=== PATIENT | male | born 1955 | race Caucasian/White ===

== ENCOUNTER → 2017-05-04 | Outpatient (CLI) | payer BC ==
[~2017-05-04] MED LIST: AMLO2.5T PO; ATOR-22 PO; CITA20TA9 PO; DVN/160 PO; GLIM1TAB2 PO; HYDR12.55 PO; METF1TAB53 PO; [UNRECOGNIZED DRUG - CODE] SC
[2017-05-04 14:37] LABS: BASO % 0.2 %; BASO ABS # 0.01 K/uL (0-0.2); EOS % 2.2 %; HEMATOCRIT 42.3 % (42-52); HEMOGLOBIN 15.1 g/dL (14.0-18.0); IG# 0.01 K/uL (0.00-0.02); LYMPH % 39.1 %; LYMPH ABS # 1.82 K/uL (1.2-3.4); MEAN CELL VOLUME 87.2 fL (80-100); MEAN CORPUSCULAR HEMOGLOBIN 31.1 pg (25-34); MEAN CORPUSCULAR HGB CONC 35.7 g/dl (32-36); MEAN PLATELET VOLUME 9.8 fL (7.4-10.4); MONO % 10.1 %; MONO ABS # 0.47 K/uL (0.11-0.59); NEUT % 48.2 %; NEUT ABS # 2.24 K/uL (1.4-6.5); PLATELET COUNT 220 K/uL (130-400); RED CELL DISTRIBUTION WIDTH CV 13.3 % (11.5-14.5); RED CELL DISTRIBUTION WIDTH SD 42.2 fL (36.4-46.3); WHITE BLOOD COUNT 4.65 K/uL (4.8-10.8)
[2017-05-04 14:40] LABS: HEMOGLOBIN A1C 11.5 % (4.5-5.6)
[2017-05-04 14:57] LABS: ALBUMIN 3.9 gm/dl (3.4-5.0); ALT/SGPT 27 U/L (12-78); BLOOD UREA NITROGEN 15 mg/dl (7-18); CALCIUM 9.8 mg/dl (8.5-10.1); CARBON DIOXIDE 24 mmol/L (21-32); CHOLESTEROL 182 mg/dl (0-200); CREATININE 1.32 mg/dl (0.60-1.40); GLUCOSE 177 mg/dl (70-99); POTASSIUM 4.3 mmol/L (3.5-5.1); SODIUM 134 mmol/L (136-145); URIC ACID 6.5 mg/dl (2.6-7.2)
[2017-05-04 15:05] LABS: ALKALINE PHOSPHATASE 89 U/L (45-117); AST/SGOT 13 U/L (15-37); LDL CHOLESTEROL CALCULATED 96 mg/dl; TOTAL PROTEIN 7.8 gm/dl (6.4-8.2); TRANSFERRIN 278 mg/dl (200-360)
== END | disposition home or self-care (01) ==
LOC: C.LAB1850 12:44
PROVIDERS: ATTEND Family Medicine
DX: E88.81 Metabolic syndrome and other insulin resistance (principal); E55.9 Vitamin D deficiency, unspecified; D51.9 Vitamin B12 deficiency anemia, unspecified; E78.9 Disorder of lipoprotein metabolism, unspecified; R53.83 Other fatigue

== ENCOUNTER 2022-10-20 18:53 | Inpatient (IN) ==
--- NOTE | 2022-10-20 19:02 | ED Triage Note ---
Date of Service October 20, 2022 History of Present Illness This patient was briefly evaluated while in triage. An abbreviated physical exam was performed. This patient is a 67-year-old Male who presents to the ED for evaluation of "aches, pains, lethargic". Blood sugars have been rising. Recently on abx and decongestant from local urgent care. Physical Exam GENERAL: 67 year old male. In no acute distress. SKIN: No lesions or rashes. HEART: Regular rate and rhythm. LUNGS: Clear to auscultation. ABDOMEN: Bowel sounds normoactive. No guarding or rigidity. No tenderness of palpation. NEURO: Alert and oriented. No deficits. MUSCULOSKELETAL: No deformities to inspection of the extremities. PSYCH: Patient is pleasant and answers all questions appropriately. Initial orders for labs and / or imaging were placed and patient was placed in the waiting area until a bed is available. Please see further documentation for the full ED course.
[2022-10-20 20:14] LABS: Basophils # (auto) 0.01 K/uL (0-0.2); Basophils % (auto) 0.2 %; Hematocrit (blood only) 42.5 % (42.0-52.0); Hemoglobin 15.7 g/dl (14.0-18.0); Immature Granulocytes # (auto) 0.01 K/uL (0.01-0.20); Immature Granulocytes % (auto) 0.2 %; Lymphocytes % (auto) 12.9 %; Mean Corpuscular Hemoglobin 30.8 pg (25.0-34.0); Mean Corpuscular Hgb Conc 36.9 g/dL (32.0-36.0); Mean Corpuscular Volume 83.5 fL (80.0-100.0); Mean Platelet Volume 9.8 fL (9.4-12.4); Monocytes # (auto) 0.67 K/uL (0.11-0.59); Monocytes % (auto) 14.4 %; Neutrophils # (auto) 3.35 K/uL (1.40-6.50); Neutrophils % (auto) 72.3 %; Platelet Count 231 K/uL (130-400); RDW Standard Deviation 36.3 fL (36.4-46.3); Red Blood Count 5.09 M/uL (4.70-6.10); White Blood Count 4.64 K/ul (4.8-10.8)
--- NOTE | 2022-10-20 20:22 | Emergency Department Note ---
Impression & Plan Acute hyponatremia, Muscle ache, Generalized weakness, Elevated troponin I level ED Provider Note NAME: LILI YA AGE: 67 SEX: M : 1955 ARRIVES VIA: Walk-In INFORMANT: Patient, ED PROVIDER(S): Dain Villarreal DO CHIEF COMPLAINT: Muscle aches HPI: The patient is a 67-year-old male who presented to the emergency department for an evaluation of muscle aches. The patient states that he feels very rundown. He feels very slow and weak. He also describes feeling lethargic. He states he has no energy. He was treated recently for an upper respiratory infection which did clear up with antibiotics. The patient denies having any nausea or vomiting at this time. He denies having any chest pain. He denies having any fever or lower extremity swelling. The patient was not seen by his family doctor today. ROS: See above HPI for pertinent positives & negatives. A total of 10 systems reviewed and were otherwise negative. PAST MEDICAL HISTORY: See Below PAST SURGICAL HISTORY: See Below FAMILY HISTORY: See Below SOCIAL HISTORY: See Below HOME MEDICATIONS: See Below ALLERGIES: See Below VITALS: See Below PHYSICAL EXAMINATION: GENERAL: Patient is awake alert in no acute distress patient is resting comfortably and showing no signs of anxiety EYES: The conjunctivae are clear. The pupils are round and reactive. EARS, NOSE, MOUTH AND THROAT: The nose is without any evidence of any deformity. Mucous membranes are moist. NECK: The neck is nontender and supple. RESPIRATORY: Normal respiratory effort is noted there is no evidence of wheezing rhonchi or rales CARDIOVASCULAR: Regular rate and rhythm noted there no murmurs rubs or gallops normal S1 normal S2. GASTROINTESTINAL: The abdomen is soft. Abdomen is nontender. MUSCULOSKELETAL/EXTREMITIES: There is no evidence of gross deformity full range of motion is noted in the hips and shoulders. SKIN: There is no obvious evidence of any rash. There are no petechiae, pallor or cyanosis noted. NEUROLOGIC: Patient is awake alert and oriented x3 strength is symmetric patellar reflexes are 2+ bilaterally MEDICAL DECISION MAKING: The patient is a 67-year-old male who presented to the emergency department for an evaluation of multiple complaints. The patient recently got over an upper respiratory tract infection. He states his symptoms were resolved. The patient started noticing other symptoms recently including muscle aches and generalized weakness. He also started noticing he was having trouble concentrating and he described it as lethargy. I discussed the patient's laboratory and radiographic studies with him. He was treated with IV fluids in the emergency department. He was found have a low white blood cell count. It is possible this represents a tickborne illness however nothing was positive at this time. He was also found to have hyponatremia. Given the patient's presentation I do feel could be related to the hyponatremia. Troponin was elevated although the patient denies having any chest pain. EKG showed no change in previous. Given the patient's presentation I discussed this case with the on-call [facility] hospitalist. Triage Nursing notes reviewed. Prior medical records reviewed Vital Signs: reviewed and remarkable for elevated blood pressure. Differential diagnosis: Infection, dehydration, metabolic abnormality, hypo/hyperglycemia, electrolyte disturbance, anemia, hypoxia, cardiac sources, intracerebral event, toxicologic, neurologic, as well as other pathologies. ER treatment provided: See below Diagnostics interpreted by me: ECG: EKG was obtained in the emergency department my interpretation is sinus rhythm at 79 bpm. PACs were noted. LVH was noted by voltage criteria. Nonspecific ST segment abnormalities were noted. This was compared to a tracing from September 23, 2018. No changes were noted Cardiac Monitoring: An order was placed for continuous cardiac monitoring. The monitor shows a rate of 73 bpm with sinus rhythm. Laboratory studies: As stated above and show below. Imaging studies: See below. Radiographic imaging was reviewed by myself Consultation(s): Dr[facility] Callahan [facility] the patient. He will evaluate the patient in the emergency department. Past Med/Surg History Medical History Anxiety Cellulitis and abscess of foot Diabetes type 2, controlled H/O osteomyelitis H/O renal calculi 46 YEARS AGO History of COVID-19 03/22/22, TESTED AT [facility], NOT HOSP; COVID EXPOSURE, MILD SYMPTOMS>RESOLVED, TX W/PAXLOVID Hypertension MSSA (methicillin susceptible Staphylococcus aureus) infection Serous retinal detachment 7 YEARS AGO Stopped smoking with less than 1 pack per day history Surgical History Hx of colonoscopy Hx of detached retina repair RT. 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 Beliefs That Will Affect Care: None marital status: Current Living Situation: Spouse current occupational status: employed current occupation: WORKS A DESK JOB, AT THE [employer] How many Children do You have: 2 How many Children do You have Comment: BOTH ARE GROWN AND NOT LOCAL Feels Safe at Home: Yes Diet: diabetic during the past year weight has: remained stable Physical Activity Frequency Comment: WAS WALKING AND EXERCISING, HOWEVER HAS DECREASED RECENTLY Assistive Devices: Glasses Allergies Allergies Allergy/AdvReac Type Severity Reaction Status Date / Time No Known Drug Allergies Allergy Verified 08/12/22 15:26 Home Meds Home Medications Medication Instructions Recorded Confirmed aspirin 81 mg tablet,delayed 81 mg PO [facility] 07/12/22 08/12/22 release (Charles Low Dose Aspirin) atorvastatin 80 mg tablet 80 mg PO HS 07/12/22 08/12/22 cholecalciferol (vitamin D3) 50 50 mcg PO QAM 07/12/22 08/12/22 mcg (2,000 unit) tablet insulin degludec 100 unit/mL (3 35 unit subcut [facility] 07/12/22 08/12/22 mL) subcutaneous pen (Tresiba FlexTouch U-100 insulin) sitagliptin phosphate 100 mg 100 mg PO [facility] 07/12/22 08/12/22 tablet (Januvia) Previous Rx's Medication Instructions Recorded blood sugar diagnostic (FreeStyle #90 ea 03/28/19 Precision Rashad Strips) Dexcom G6 Carpet Inspector Finished (blood-glucose #1 03/30/19 meter,continuous) BD Ultra-Fine Mary Jane Pen Needle 32 #300 ea 04/27/22 gauge x 5/32" (pen needle, diabetic) Dexcom G6 Transmitter #1 04/27/22 (blood-glucose transmitter) metformin 1,000 mg tablet 1,000 mg PO BID #180 tabs 04/27/22 Dexcom G6 Sensor (blood-glucose #3 ea 05/25/22 sensor) insulin aspart U-100 100 unit/mL See Rx Instructions subcut TID #30 06/21/22 (3 mL) subcutaneous pen (Novolog mL FlexPen U-100 Insulin aspart) amlodipine 10 mg tablet 10 mg PO HS #90 tabs 08/12/22 citalopram 10 mg tablet (Celexa) 10 mg PO QAM #90 tabs 08/12/22 valsartan 160 mg tablet (Diovan) 160 mg PO BID #90 tabs 08/12/22 Results & Data (ED) Vital Signs Vital Signs - 24 hr 10/20/22 19:00 10/20/22 21:05 10/20/22 21:30 Temperature 36.3 C L Temperature Source Temporal Artery Scan Pulse Rate 84 Pulse Rate [Apical] 72 72 Pulse Rate from SpO2 Sensor Pulse Rhythm Regular Pulse Rhythm [Apical] Regular Pulse Strength Normal Respiratory Rate 20 14 16 Respiratory Effort / Characteristics Non-Labored Spontaneous Respiratory Depth Normal Normal Respiratory Pattern Regular Blood Pressure 110/73 Blood Pressure [Right Arm] 193/102 H 175/95 H Blood Pressure Mean 85 Blood Pressure Mean [Right Arm] 132 121 Blood Pressure Position Sitting Pulse Oximetry 97 97 97 Oxygen Delivery Method Room Air Room Air Room Air Sepsis Recent Fever Within 48 Hours No Sepsis New/Unexplained Change in Mental Status No Sepsis Action Taken by Nursing No Action Required 10/20/22 21:04 10/20/22 22:44 10/20/22 22:00 Temperature Temperature Source Pulse Rate 72 77 Pulse Rate [Apical] 73 Pulse Rate from SpO2 Sensor 71 Pulse Rhythm Pulse Rhythm [Apical] Regular Pulse Strength Respiratory Rate 14 15 Respiratory Effort / Characteristics Non-Labored Spontaneous Respiratory Depth Normal Respiratory Pattern Blood Pressure 176/94 H Blood Pressure [Right Arm] 188/107 H Blood Pressure Mean 121 Blood Pressure Mean [Right Arm] 134 Blood Pressure Position Pulse Oximetry 96 98 Oxygen Delivery Method Room Air Room Air Sepsis Recent Fever Within 48 Hours Sepsis New/Unexplained Change in Mental Status Sepsis Action Taken by Nursing 10/20/22 22:41 10/20/22 23:00 Temperature Temperature Source Pulse Rate 73 74 Pulse Rate [Apical] Pulse Rate from SpO2 Sensor 68 71 Pulse Rhythm Pulse Rhythm [Apical] Pulse Strength Respiratory Rate 14 12 Respiratory Effort / Characteristics Respiratory Depth Respiratory Pattern Blood Pressure 188/107 H 182/111 H Blood Pressure [Right Arm] Blood Pressure Mean 134 134 Blood Pressure Mean [Right Arm] Blood Pressure Position Pulse Oximetry 97 97 Oxygen Delivery Method Room Air Room Air Sepsis Recent Fever Within 48 Hours Sepsis New/Unexplained Change in Mental Status Sepsis Action Taken by Longterm Medications Current Medication List: was personally reviewed by me Laboratory Data Attestation: I reviewed the patient's lab results. 10/20/22 19:44 10/20/22 19:44 Lab Results 10/20/22 10/20/22 10/20/22 Range/Units 19:44 19:44 19:44 WBC 4.64 L (4.8-10.8) K/ul RBC 5.09 (4.70-6.10) M/uL Hgb 15.7 (14.0-18.0) g/dl Hct 42.5 (42.0-52.0) % MCV 83.5 (80.0-100.0) fL MCH 30.8 (25.0-34.0) pg MCHC 36.9 H (32.0-36.0) g/dL RDW Std Deviation 36.3 L (36.4-46.3) fL RDW Coeff of [place] 12.0 (11.5-14.5) % Plt Count 231 (130-400) K/uL MPV 9.8 (9.4-12.4) fL Immature Gran % (Auto) 0.2 % Neut % (Auto) 72.3 % Lymph % (Auto) 12.9 % [place] % (Auto) 14.4 % Eos % (Auto) 0.0 % Baso % (Auto) 0.2 % Neut # (Auto) 3.35 (1.40-6.50) K/uL Lymph # (Auto) 0.60 L (1.2-3.4) K/uL [place] # (Auto) 0.67 H (0.11-0.59) K/uL Eos # (Auto) 0.00 (0-0.50) K/uL Baso # (Auto) 0.01 (0-0.2) K/uL Immature Gran # (Auto) 0.01 (0.01-0.20) K/uL Sodium 126 L (136-145) mmol/L Potassium 3.9 (3.5-5.1) mmol/L Chloride 89 L (98-107) mmol/L Carbon Dioxide 25 (21-32) mmol/L Anion Gap 12 H (3-11) BUN 13 (6-23) mg/dl Creatinine 0.95 (0.6-1.4) mg/dl Est Cr Clr Drug Dosing 109.5 ml/min Est GFR ( Amer) 95.6 ml/min Est GFR (Non-Af Amer) 82.5 ml/min BUN/Creatinine Ratio 13.7 (10-20) Glucose 189 H (70-99(Fasting)) mg/dl Calcium 9.5 (8.6-10.3) mg/dl Magnesium 1.9 (1.7-2.4) mg/dl Total Bilirubin 1.6 H (0.2-1.0) mg/dl AST 12 L (13-39) U/L ALT 17 (7-52) U/L Alkaline Phosphatase 94 (34-104) U/L Total Creatine Kinase 52 (30-223) U/L Troponin I High Sens 24.6 H (0-20) pg/ml Total Protein 8.4 H (6.0-8.3) gm/dl Albumin 4.6 (3.4-5.0) gm/dl Globulin 3.8 (2.5-4.0) gm/dl Albumin/Globulin Ratio 1.2 (0.9-2) Lipase 27 (11-82) U/L TSH 4.127 (0.300-4.500) uIu/ml Urine Color Urine Appearance (Clear) Urine pH (4.5-7.5) Ur Specific [place] (1.000-1.030) Urine Protein (Negative) Urine Glucose (UA) (Negative) Urine Ketones (Negative) Urine Blood (Negative) Urine Nitrite (Negative) Urine Bilirubin (Negative) Urine Urobilinogen (Negative) Ur Leukocyte Esterase (Negative) Urine WBC (Auto) (0-5) /hpf Urine RBC (Auto) (0-4) /hpf U Hyaline Cast (Auto) (0-5) /lpf U Epithel Cells (Auto) (0-5) /lpf Urine Bacteria (Auto) (Negative) Ur Random Sodium mmol/L Anaplasma Smear See Comment Babesia Smear See Comment Lyme Disease IgG Ab (Negative) Lyme Disease IgM Ab (Negative) 08/16/23 08/16/23 08/16/23 Range/Units 19:44 19:55 19:55 WBC (4.8-10.8) K/ul RBC (4.70-6.10) M/uL Hgb (14.0-18.0) g/dl Hct (42.0-52.0) % MCV (80.0-100.0) fL MCH (25.0-34.0) pg MCHC (32.0-36.0) g/dL RDW Std Deviation (36.4-46.3) fL RDW Coeff of [place] (11.5-14.5) % Plt Count (130-400) K/uL MPV (9.4-12.4) fL Immature Gran % (Auto) % Neut % (Auto) % Lymph % (Auto) % [place] % (Auto) % Eos % (Auto) % Baso % (Auto) % Neut # (Auto) (1.40-6.50) K/uL Lymph # (Auto) (1.2-3.4) K/uL [place] # (Auto) (0.11-0.59) K/uL Eos # (Auto) (0-0.50) K/uL Baso # (Auto) (0-0.2) K/uL Immature Gran # (Auto) (0.01-0.20) K/uL Sodium (136-145) mmol/L Potassium (3.5-5.1) mmol/L Chloride (98-107) mmol/L Carbon Dioxide (21-32) mmol/L Anion Gap (3-11) BUN (6-23) mg/dl Creatinine (0.6-1.4) mg/dl Est Cr Clr Drug Dosing ml/min Est GFR ( Amer) ml/min Est GFR (Non-Af Amer) ml/min BUN/Creatinine Ratio (10-20) Glucose (70-99(Fasting)) mg/dl Calcium (8.6-10.3) mg/dl Magnesium (1.7-2.4) mg/dl Total Bilirubin (0.2-1.0) mg/dl AST (13-39) U/L ALT (7-52) U/L Alkaline Phosphatase (34-104) U/L Total Creatine Kinase (30-223) U/L Troponin I High Sens (0-20) pg/ml Total Protein (6.0-8.3) gm/dl Albumin (3.4-5.0) gm/dl Globulin (2.5-4.0) gm/dl Albumin/Globulin Ratio (0.9-2) Lipase (11-82) U/L TSH (0.300-4.500) uIu/ml Urine Color Yellow Urine Appearance Clear (Clear) Urine pH 6.0 (4.5-7.5) Ur Specific [place] 1.022 (1.000-1.030) Urine Protein 1+ H (Negative) Urine Glucose (UA) 2+ H (Negative) Urine Ketones 1+ H (Negative) Urine Blood Negative (Negative) Urine Nitrite Negative (Negative) Urine Bilirubin Negative (Negative) Urine Urobilinogen Negative (Negative) Ur Leukocyte Esterase Negative (Negative) Urine WBC (Auto) 1-5 (0-5) /hpf Urine RBC (Auto) 0-4 (0-4) /hpf U Hyaline Cast (Auto) 1-5 (0-5) /lpf U Epithel Cells (Auto) 20-30 H (0-5) /lpf Urine Bacteria (Auto) Negative (Negative) Ur Random Sodium 49 mmol/L Anaplasma Smear Babesia Smear Lyme Disease IgG Ab Negative (Negative) Lyme Disease IgM Ab Negative (Negative) 10/20/22 Range/Units 22:42 WBC (4.8-10.8) K/ul RBC (4.70-6.10) M/uL Hgb (14.0-18.0) g/dl Hct (42.0-52.0) % MCV (80.0-100.0) fL MCH (25.0-34.0) pg MCHC (32.0-36.0) g/dL RDW Std Deviation (36.4-46.3) fL RDW Coeff of [place] (11.5-14.5) % Plt Count (130-400) K/uL MPV (9.4-12.4) fL Immature Gran % (Auto) % Neut % (Auto) % Lymph % (Auto) % [place] % (Auto) % Eos % (Auto) % Baso % (Auto) % Neut # (Auto) (1.40-6.50) K/uL Lymph # (Auto) (1.2-3.4) K/uL [place] # (Auto) (0.11-0.59) K/uL Eos # (Auto) (0-0.50) K/uL Baso # (Auto) (0-0.2) K/uL Immature Gran # (Auto) (0.01-0.20) K/uL Sodium (136-145) mmol/L Potassium (3.5-5.1) mmol/L Chloride (98-107) mmol/L Carbon Dioxide (21-32) mmol/L Anion Gap (3-11) BUN (6-23) mg/dl Creatinine (0.6-1.4) mg/dl Est Cr Clr Drug Dosing ml/min Est GFR ( Amer) ml/min Est GFR (Non-Af Amer) ml/min BUN/Creatinine Ratio (10-20) Glucose (70-99(Fasting)) mg/dl Calcium (8.6-10.3) mg/dl Magnesium (1.7-2.4) mg/dl Total Bilirubin (0.2-1.0) mg/dl AST (13-39) U/L ALT (7-52) U/L Alkaline Phosphatase (34-104) U/L Total Creatine Kinase (30-223) U/L Troponin I High Sens 25.9 H (0-20) pg/ml Total Protein (6.0-8.3) gm/dl Albumin (3.4-5.0) gm/dl Globulin (2.5-4.0) gm/dl Albumin/Globulin Ratio (0.9-2) Lipase (11-82) U/L TSH (0.300-4.500) uIu/ml Urine Color Urine Appearance (Clear) Urine pH (4.5-7.5) Ur Specific [place] (1.000-1.030) Urine Protein (Negative) Urine Glucose (UA) (Negative) Urine Ketones (Negative) Urine Blood (Negative) Urine Nitrite (Negative) Urine Bilirubin (Negative) Urine Urobilinogen (Negative) Ur Leukocyte Esterase (Negative) Urine WBC (Auto) (0-5) /hpf Urine RBC (Auto) (0-4) /hpf U Hyaline Cast (Auto) (0-5) /lpf U Epithel Cells (Auto) (0-5) /lpf Urine Bacteria (Auto) (Negative) Ur Random Sodium mmol/L Anaplasma Smear Babesia Smear Lyme Disease IgG Ab (Negative) Lyme Disease IgM Ab (Negative) Administered Medications Discontinued Medications Amlodipine Besylate (Amlodipine Besylate 5 Mg Tab) 10 mg PO NOW ONE Stop: 10/20/22 21:19 Last Admin: 10/20/22 21:23 Dose: 10 mg Documented By: FIONA Sodium Chloride (Nss) 500 mls @ 999 mls/hr IV .Q31M ONE Stop: 10/20/22 23:03 Last Infusion: 10/20/22 23:25 Dose: 0 mls/hr Documented By: Admin: 10/20/22 22:44 Dose: 999 mls/hr Documented By: FIONA Valsartan (Valsartan 80 Mg Tab) 160 mg PO ONE ONE Stop: 10/20/22 21:20 Last Admin: 10/20/22 21:29 Dose: 160 mg Documented By: FIONA Imaging Data Attestation: I personally reviewed and interpreted this imaging study as follows: My Impression: 1 view chest x-ray was obtained in the emergency department. My interpretation is no free air or definite infiltrate, final report pending. CT of the brain was obtained in the emergency department. My interpretation is no intracranial hemorrhage, final report below. Radiologist's Impression: Head CT 10/20/22 20:24 Exam(s): CT HEAD Without Contrast EXAM: CT Head Without Intravenous Contrast CLINICAL HISTORY: Reason for exam: weakness. TECHNIQUE: Axial computed tomography images of the head/brain without intravenous contrast. CTDI is 37.01 mGy and DLP is 781.9 mGy-cm. Automated exposure control was utilized for the study. A dose lowering technique was utilized adhering to the principles of ALARA. COMPARISON: No relevant prior studies available. FINDINGS: Brain: Unremarkable. No hemorrhage. No significant white matter disease. No edema. Ventricles: Unremarkable. No ventriculomegaly. Bones/joints: Unremarkable. No acute fracture. Soft tissues: Unremarkable. Sinuses: Unremarkable as visualized. No acute sinusitis. Mastoid air cells: Unremarkable as visualized. No mastoid effusion. IMPRESSION: Normal head/brain CT. Electronically signed by: Toni Mason MD 10/20/22 21:31 PM Discharge Plan Visit Data Chief Complaint: Illness Stated Complaint: BODY ACHES,LETHARGIC,INCREASED SUGAR LEVEL ED Provider: Dain Villarreal Discharge Problem: Acute hyponatremia, Muscle ache, Generalized weakness, Elevated troponin I level Patient Disposition: Being Evaluated by Hospitalist Forms Stand Alone Forms: My [facility] Prescriptions Prescriptions: No Action (DME) FreeStyle Precision Rashad Strips Strip See Rx Instructions .ROUTE .MEDSUPPLY Qty: 90 3RF Rx Instructions: Test daily to calibrate sully (DME) Dexcom G6 Carpet Inspector Finished Misc See Rx Instructions .ROUTE .MEDSUPPLY Qty: 1 0RF Rx Instructions: For use with Dexcom G6 transmitter and sensors (DME) pen needle, diabetic [BD Ultra-Fine Mary Jane Pen Needle] 32 gauge x 5/32" needle See Rx Instructions .ROUTE .MEDSUPPLY Qty: 300 3RF Rx Instructions: Use up to 3x a day with new pen needles (DME) Dexcom G6 Transmitter Device See Rx Instructions .ROUTE .MEDSUPPLY Qty: 1 3RF Rx Instructions: Use as directed for continuous glucose monitoring - change every 90 days metformin 1,000 mg tablet 1,000 mg PO BID Qty: 180 3RF (DME) Dexcom G6 Sensor Device See Rx Instructions .ROUTE .MEDSUPPLY Qty: 3 11RF Rx Instructions: Use as directed for continuous glocuse monitoring - Change sensor every 10 days insulin aspart U-100 [Novolog FlexPen U-100 Insulin] 100 unit/mL (3 mL) insulin pen See Rx Instructions subcut TID MDD 60 Qty: 30 3RF Rx Instructions: Administer up to 60 units a day as directed subcutaneously three times a day; per sliding scale citalopram [Celexa] 10 mg tablet 10 mg PO QAM Qty: 90 3RF valsartan [Diovan] 160 mg tablet 160 mg PO BID Qty: 90 3RF amlodipine 10 mg tablet 10 mg PO HS Qty: 90 3RF atorvastatin 80 mg tablet 80 mg PO HS aspirin [Charles Low Dose Aspirin] 81 mg tablet,delayed release (DR/EC) 81 mg PO QAM Januvia 100 mg tablet 100 mg PO QAM cholecalciferol (vitamin D3) 50 mcg (2,000 unit) tablet 50 mcg PO QAM insulin degludec [Tresiba FlexTouch U-100] 100 unit/mL (3 mL) insulin pen 35 unit SQ QAM Referrals Referrals: Torrey Gutiérrez MD [Primary Care Provider] -
[2022-10-20 20:40] LABS: Albumin Globulin Ratio 1.2 (0.9-2); Albumin Level 4.6 gm/dl (3.4-5.0); BUN Creatinine Ratio 13.7 (10-20); Bilirubin,Total 1.6 mg/dl (0.2-1.0); Calcium 9.5 mg/dl (8.6-10.3); Creatinine Clr Calc Pharmacy 109.5 ml/min; Est GFR (African American) 95.6 ml/min; Est GFR (Non-African American) 82.5 ml/min; Globulin 3.8 gm/dl (2.5-4.0); Magnesium 1.9 mg/dl (1.7-2.4); Potassium 3.9 mmol/L (3.5-5.1); Total Protein 8.4 gm/dl (6.0-8.3)
[2022-10-20 20:47] LABS: Troponin I High Sensitivity 24.6 pg/ml (0-20)
[2022-10-20 21:00] LABS: Appearance Urine Clear (Clear); Bacteria Urine Automated Negative (Negative); Bilirubin Urine Negative (Negative); Blood Urine Negative (Negative); Color Urine Yellow; Epithelial Cell Urine Auto 20-30 /lpf (0-5); Glucose Urine UA 2+ (Negative); Ketones Urine 1+ (Negative); Leukocyte Esterase Urine Negative (Negative); Nitrite Urine Negative (Negative); Protein Urine 1+ (Negative); RBC Urine Automated 0-4 /hpf (0-4); Specific Gravity Urine 1.022 (1.000-1.030); Urobilinogen Urine Negative (Negative)
[2022-10-20 21:10] LABS: Lyme Ab IgG w/WB Rflx Negative (Negative); Lyme Ab IgM w/WB Rflx Negative (Negative)
[2022-10-20] MEDS ORDERED: amLODIPine BESYLATE 5 MG TAB PO ONE (21:18)
[2022-10-20] MEDS ORDERED: VALSARTAN 80 MG TAB PO ONE (21:19)
--- NOTE | 2022-10-20 21:31 | CT Scan Report ---
Exam(s): CT HEAD Without Contrast EXAM: CT Head Without Intravenous Contrast CLINICAL HISTORY: Reason for exam: weakness. TECHNIQUE: Axial computed tomography images of the head/brain without intravenous contrast. CTDI is 37.01 mGy and DLP is 781.9 mGy-cm. Automated exposure control was utilized for the study. A dose lowering technique was utilized adhering to the principles of ALARA. COMPARISON: No relevant prior studies available. FINDINGS: Brain: Unremarkable. No hemorrhage. No significant white matter disease. No edema. Ventricles: Unremarkable. No ventriculomegaly. Bones/joints: Unremarkable. No acute fracture. Soft tissues: Unremarkable. Sinuses: Unremarkable as visualized. No acute sinusitis. Mastoid air cells: Unremarkable as visualized. No mastoid effusion. IMPRESSION: Normal head/brain CT. Electronically signed by: Toni Mason MD 10/20/22 21:31 PM
[2022-10-20] MEDS ORDERED: SODIUM CHLORIDE 0.9% 500 ML IV ONE (22:33)
[2022-10-21] MEDS ORDERED: BACLOFEN 10 MG TAB PO ONE (00:03)
--- NOTE | 2022-10-21 00:20 | History & Physical Report ---
Date of Service October 21, 2022 Assessment & Plan (1) SIADH (syndrome of inappropriate ADH production): (2) Acute hyponatremia: (3) Generalized weakness: (4) Elevated troponin I level: (5) Diabetic peripheral neuropathy associated with type 2 diabetes mellitus: (6) Hypertension: (7) Dyslipidemia: (8) Diabetic nephropathy associated with type 2 diabetes mellitus: (9) Chronic renal disease, stage 3, moderately decreased glomerular filtration rate (GFR) between 30-59 mL/min/1.73 square meter: (10) Benign prostatic hyperplasia: (11) Diabetes type 2, controlled: Plan Acute hyponatremia/SIADH- Sodium 126, serum osmolality 273, urine osmolality 640, consistent with SIADH Most of his symptoms could be explained by this process Fluid restrict to 1200 mL Follow serial renal function panels May add sodium chloride 1 g p.o. twice daily if numbers not improving quickly enough Multiple complaints of myalgias, feeling rundown, lethargic, generalized weakness- Patient did have negative Lyme disease, and anaplasmosis and babesiosis smears with pending antibody titers Elevated troponin/hypertension- The patient will be admitted to telemetry for serial cardiac enzymes, serial EKG's, cardiac rhythm monitoring and a 2-D echocardiogram with Dopplers. Troponin 25.9 on admission, likely type II supply demand mismatch Continue amlodipine, aspirin, valsartan Diabetes mellitus- Change insulin degludec from 35 to 20 units subcu every morning Hold Januvia and metformin Place on on Accu-Cheks with NovoLog SSI History of Present Illness Chief Complaint: The patient reports to the emergency department with feeling generally unwell, complaining of muscle aches, feeling rundown, lethargic and generally weak ever since operatory infection the previous week that was treated with antibiotics. Primary Care Provider: Torrey Gutiérrez MD The patient is a 67-year-old male with a past medical history including diabetic peripheral neuropathy, diabetes mellitus, diabetic foot ulcer, hypertension, dyslipidemia, diabetic nephropathy, anxiety disorder, CKD stage III, BPH, recurrent UTI and partial foot amputation. He reports upper respiratory infection the previous week, that seemed to have gotten better with antibiotics, however, since that time he has had generalized symptoms of muscle aches, feeling rundown, lethargy and generalized weakness and fatigue. He also describes a feeling somewhat disoriented intermittently. Significant laboratories: Sodium 126, glucose 189, troponin 25.9, serum osmolality 273 and urine osmolality 640. The patient did, while he was in the ED, reported his low back was bothering him, however, he thought it was related to the ED bed, and asked for a muscle relaxer, for which he was given baclofen Allergies Allergy/AdvReac Type Severity Reaction Status Date / Time No Known Drug Allergies Allergy . Verified 10/21/22 01:29 Home Medications Medication Instructions Recorded Confirmed Type blood sugar diagnostic (FreeStyle #90 ea 03/28/19 08/12/22 Rx Precision Rashad Strips) Dexcom G6 Table Cut Off Saw Operator (blood-glucose #1 ea 03/30/19 08/12/22 Rx meter,continuous) BD Ultra-Fine Mary Jane Pen Needle 32 #300 ea 04/27/22 08/12/22 Rx gauge x 5/32" (pen needle, diabetic) Dexcom G6 Transmitter #1 ea 04/27/22 08/12/22 Rx (blood-glucose transmitter) metformin 1,000 mg tablet 1,000 mg PO BID #180 tabs 04/27/22 10/21/22 Rx Dexcom G6 Sensor (blood-glucose #3 ea 05/25/22 08/12/22 Rx sensor) aspirin 81 mg tablet,delayed 81 mg PO QAM 07/12/22 10/21/22 History release (Charles Low Dose Aspirin) atorvastatin 80 mg tablet 80 mg PO HS 07/12/22 10/21/22 History cholecalciferol (vitamin D3) 50 50 mcg PO QAM 07/12/22 10/21/22 History mcg (2,000 unit) tablet insulin degludec 100 unit/mL (3 20 unit subcut QAM 07/12/22 10/21/22 History mL) subcutaneous pen (Tresiba FlexTouch U-100 insulin) sitagliptin phosphate 100 mg 100 mg PO QAM 07/12/22 10/21/22 History tablet (Januvia) amlodipine 10 mg tablet 10 mg PO HS #90 tabs 08/12/22 10/21/22 Rx citalopram 10 mg tablet (Celexa) 10 mg PO QAM #90 tabs 08/12/22 10/21/22 Rx valsartan 160 mg tablet (Diovan) 160 mg PO BID #90 tabs 08/12/22 10/21/22 Rx insulin aspart U-100 100 unit/mL 0 sliding scale dose subcut BIDM 10/21/22 10/21/22 History (3 mL) subcutaneous pen (Novolog FlexPen U-100 Insulin aspart) Past Med/Surg History Medical History Anxiety Cellulitis and abscess of foot Diabetes type 2, controlled H/O osteomyelitis H/O renal calculi 46 YEARS AGO History of COVID-19 03/22/22, TESTED AT [facility], NOT HOSP; COVID EXPOSURE, MILD SYMPTOMS>RESOLVED, TX W/PAXLOVID Hypertension MSSA (methicillin susceptible Staphylococcus aureus) infection Serous retinal detachment 7 YEARS AGO Stopped smoking with less than 1 pack per day history Surgical History Hx of colonoscopy Hx of detached retina repair RT. 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 Family History Grandfather (Maternal) Myocardial infarction Denies family history of Ovarian cancer Prostate cancer Breast cancer Lung cancer Colorectal cancer Cancer Social History Smoking Status: Former smoker Second Hand Exposure: No; Do You Dip or Chew Tobacco: No; Hx Alcohol Use: Yes Alcohol type: beer Alcohol Intake Frequency: Monthly or Less Hx Substance Use: No Preferred Language: Malian Communication Ability: Effective Visual Impairment: Limited Hearing Ability: Normal Wet Cleaner Machine Required: No Beliefs That Will Affect Care: None marital status: Current Living Situation: Spouse current occupational status: employed current occupation: WORKS A DESK JOB, AT [employer] How many Children do You have: 2 How many Children do You have Comment: BOTH ARE GROWN AND NOT LOCAL Other Information That Helps Us Care for You: No Feels Safe at Home: Yes Safety Concerns: Feels Safe At This Time Diet: diabetic during the past year weight has: remained stable Physical Activity Frequency Comment: WAS WALKING AND EXERCISING, HOWEVER HAS DECREASED RECENTLY Assistive Devices: Glasses Review of Systems Review of Systems: The patient denies chest pain, palpitations, shortness of breath, dyspnea on exertion, cough, lower extremity swelling, sore throat, fevers, chills, sweats, weight change, fatigue, nausea, vomiting, diarrhea , constipation, abdominal pain, pelvic pain, blood in urine or stool, dysuria, urinary frequency or urgency, lightheadedness, dizziness, headache, memory loss, loss of consciousness, rash, abnormal bruising or bleeding, imbalance, focal weakness, numbness or tingling in arms or legs, generalized arthralgias or myalgias, neck pain, or night sweats. The review of systems is otherwise negative other than for that already noted above, and at least 10 systems have been reviewed. Physical Exam Physical Exam: The patient is awake, alert and oriented 3, well developed and well nourished, normocephalic and atraumatic, lying in bed and in no acute distress. HEENT--PERRL, EOMI, mucous membranes and oropharynx normal. Neck--supple. No JVD. No bruits. Thyroid normal, trachea midline, no adenopathy. Heart--normal S1 and S2. No murmurs, rubs or gallops. Lungs--clear bilaterally, no respiratory distress, no accessory muscle use. Abdomen--normal bowel sounds and soft. Nontender. Nondistended, no hernias or masses, no organomegaly. Extremities--no cyanosis or clubbing. No edema. There are good distal pulses b/l. Dermatologic--normal skin turgor, normal color, no abnormal lymph nodes, no rash. Neurologic--cranial nerves II through XII grossly intact. Rheumatologic--normal range of motion. Psychiatric--normal affect. Results & Data Results & Data Vital Signs (Past 12 Hours) Vital Signs Temp Pulse Pulse Resp BP BP Pulse Ox 10/20/22 23:30 75 14 94 10/20/22 23:00 74 12 182/111 H 97 10/20/22 22:41 73 14 188/107 H 97 10/20/22 22:00 77 15 176/94 H 98 10/20/22 22:44 73 14 188/107 H 96 10/20/22 21:04 72 10/20/22 21:30 72 16 175/95 H 97 10/20/22 21:05 72 14 193/102 H 97 10/20/22 19:00 36.3 C L 84 20 110/73 97 O2 Del Method 10/20/22 23:30 10/20/22 23:00 Room Air 10/20/22 22:41 Room Air 10/20/22 22:00 Room Air 10/20/22 22:44 Room Air 08/16/23 21:04 10/20/22 21:30 Room Air 10/20/22 21:05 Room Air 10/20/22 19:00 Room Air Laboratory Results Laboratory Results WBC 4.99 K/ul (4.8-10.8) 10/21/22 03:40 RBC 5.15 M/uL (4.70-6.10) 10/21/22 03:40 Hgb 15.9 g/dl (14.0-18.0) 10/21/22 03:40 Hct 42.8 % (42.0-52.0) 10/21/22 03:40 MCV 83.1 fL (80.0-100.0) 10/21/22 03:40 MCH 30.9 pg (25.0-34.0) 10/21/22 03:40 MCHC 37.1 g/dL (32.0-36.0) H 10/21/22 03:40 RDW Std Deviation 36.8 fL (36.4-46.3) 10/21/22 03:40 RDW Coeff of [place] 12.1 % (11.5-14.5) 10/21/22 03:40 Plt Count 225 K/uL (130-400) 10/21/22 03:40 MPV 9.8 fL (9.4-12.4) 10/21/22 03:40 Immature Gran % (Auto) 0.2 % 10/21/22 03:40 Neut % (Auto) 64.4 % 10/21/22 03:40 Lymph % (Auto) 20.0 % 10/21/22 03:40 Coke % (Auto) 15.0 % 10/21/22 03:40 Eos % (Auto) 0.2 % 10/21/22 03:40 Baso % (Auto) 0.2 % 10/21/22 03:40 Neut # (Auto) 3.21 K/uL (1.40-6.50) 10/21/22 03:40 Lymph # (Auto) 1.00 K/uL (1.2-3.4) L 10/21/22 03:40 Coke # (Auto) 0.75 K/uL (0.11-0.59) H 10/21/22 03:40 Eos # (Auto) 0.01 K/uL (0-0.50) 10/21/22 03:40 Baso # (Auto) 0.01 K/uL (0-0.2) 10/21/22 03:40 Immature Gran # (Auto) 0.01 K/uL (0.01-0.20) 10/21/22 03:40 Sodium 125 mmol/L (136-145) L 10/21/22 03:40 Potassium 3.7 mmol/L (3.5-5.1) 10/21/22 03:40 Chloride 91 mmol/L (98-107) L 10/21/22 03:40 Carbon Dioxide 24 mmol/L (21-32) 10/21/22 03:40 Anion Gap 10 (3-11) 10/21/22 03:40 BUN 13 mg/dl (6-23) 10/21/22 03:40 Creatinine 0.82 mg/dl (0.6-1.4) 10/21/22 03:40 Est Cr Clr Drug Dosing 126.3 ml/min 10/21/22 03:40 Est GFR ( Amer) 106.1 ml/min 10/21/22 03:40 Est GFR (Non-Af Amer) 91.5 ml/min 10/21/22 03:40 BUN/Creatinine Ratio 15.9 (10-20) 10/21/22 03:40 Glucose 190 mg/dl (70-99(Fasting)) H 10/21/22 03:40 Osmolality 273 mOsm/kg (280-300) L 10/20/22 19:44 Calcium 8.9 mg/dl (8.6-10.3) 10/21/22 03:40 Phosphorus 2.4 mg/dl (2.5-4.9) L 10/21/22 03:40 Magnesium 1.9 mg/dl (1.7-2.4) 10/20/22 19:44 Total Bilirubin 1.6 mg/dl (0.2-1.0) H 10/20/22 19:44 AST 12 U/L (13-39) L 10/20/22 19:44 ALT 17 U/L (7-52) 10/20/22 19:44 Alkaline Phosphatase 94 U/L (34-104) 10/20/22 19:44 Total Creatine Kinase 52 U/L (30-223) 10/20/22 19:44 Troponin I High Sens 26.7 pg/ml (0-20) H 10/21/22 03:40 Total Protein 8.4 gm/dl (6.0-8.3) H 10/20/22 19:44 Albumin 4.3 gm/dl (3.4-5.0) 10/21/22 03:40 Globulin 3.8 gm/dl (2.5-4.0) 10/20/22 19:44 Albumin/Globulin Ratio 1.2 (0.9-2) 10/20/22 19:44 Lipase 27 U/L (11-82) 10/20/22 19:44 TSH 4.127 uIu/ml (0.300-4.500) 10/20/22 19:44 Urine Color Yellow 10/20/22 19:55 Urine Appearance Clear (Clear) 10/20/22 19:55 Urine pH 6.0 (4.5-7.5) 10/20/22 19:55 Ur Specific [place] 1.022 (1.000-1.030) 10/20/22 19:55 Urine Protein 1+ (Negative) H 10/20/22 19:55 Urine Glucose (UA) 2+ (Negative) H 10/20/22 19:55 Urine Ketones 1+ (Negative) H 10/20/22 19:55 Urine Blood Negative (Negative) 10/20/22 19:55 Urine Nitrite Negative (Negative) 10/20/22 19:55 Urine Bilirubin Negative (Negative) 10/20/22 19:55 Urine Urobilinogen Negative (Negative) 10/20/22 19:55 Ur Leukocyte Esterase Negative (Negative) 10/20/22 19:55 Urine WBC (Auto) 1-5 /hpf (0-5) 10/20/22 19:55 Urine RBC (Auto) 0-4 /hpf (0-4) 10/20/22 19:55 U Hyaline Cast (Auto) 1-5 /lpf (0-5) 10/20/22 19:55 U Epithel Cells (Auto) 20-30 /lpf (0-5) H 10/20/22 19:55 Urine Bacteria (Auto) Negative (Negative) 10/20/22 19:55 Urine Osmolality 640 mOsm/kg (500-800) 10/20/22 19:55 Ur Random Sodium 49 mmol/L 10/20/22 19:55 Anaplasma Smear See Comment 10/20/22 19:44 Babesia Smear See Comment 10/20/22 19:44 Lyme Disease IgG Ab Negative (Negative) 10/20/22 19:44 Lyme Disease IgM Ab Negative (Negative) 10/20/22 19:[address] 10/20/22 20:24 Exam(s): CT HEAD Without Contrast EXAM: CT Head Without Intravenous Contrast CLINICAL HISTORY: Reason for exam: weakness. TECHNIQUE: Axial computed tomography images of the head/brain without intravenous contrast. CTDI is 37.01 mGy and DLP is 781.9 mGy-cm. Automated exposure control was utilized for the study. A dose lowering technique was utilized adhering to the principles of ALARA. COMPARISON: No relevant prior studies available. FINDINGS: Brain: Unremarkable. No hemorrhage. No significant white matter disease. No edema. Ventricles: Unremarkable. No ventriculomegaly. Bones/joints: Unremarkable. No acute fracture. Soft tissues: Unremarkable. Sinuses: Unremarkable as visualized. No acute sinusitis. Mastoid air cells: Unremarkable as visualized. No mastoid effusion. IMPRESSION: Normal head/brain CT. Electronically signed by: Toni Mason MD 10/20/22 21:31 PM Code Status & VTE Plan Code Status Full code VTE Prophylaxis Plan VTE Prophylaxis will be ordered: Yes PG Care Time/CCT Total # of Minutes Spent Total Time Spent with Patient: Total time spent is greater than 50% in coordination of care (as documented) at patient's floor/unit and/or counseling patient: Coding Level of Care Code 83151 INT INP/OBS CARE 3/75MIN Diagnoses SIADH (syndrome of inappropriate ADH production) E22.2 Acute hyponatremia E87.1 Generalized weakness R53.1 Elevated troponin I level R77.8 Diabetic peripheral neuropathy associated with type 2 diabetes mellitus E11.42 Hypertension I10 Dyslipidemia E78.5 Diabetic nephropathy associated with type 2 diabetes mellitus E11.21 Chronic renal disease, stage 3, moderately decreased glomerular filtration rate (GFR) between 30-59 mL/min/1.73 square meter N18.3 Benign prostatic hyperplasia N40.0 Diabetes type 2, controlled E11.9
[2022-10-21] MEDS ORDERED: DEXTROSE 50% 50 ML SYRINGE IV PRN (03:10)
[2022-10-21] MEDS ORDERED: CARBOHYDRATES FOR HYPOGLYCEMIA PO PRN (03:10)
[2022-10-21] MEDS ORDERED: GLUCAGON FOR INJ 1 MG VIAL SQ PRN (03:10)
[2022-10-21] MEDS ORDERED: GLUCOSE 40% GEL 15 GM TUBE PO PRN (03:10)
[2022-10-21] MEDS ORDERED: GLUCOSE 10 TAB/TUBE PO PRN (03:10)
[2022-10-21] MEDS ORDERED: ONDANSETRON INJ 2 MG/ML 2 ML VIAL IV PRN (03:10)
[2022-10-21] MEDS ORDERED: ACETAMINOPHEN 325 MG TAB PO PRN (03:10)
[2022-10-21 03:51] LABS: Basophils # (auto) 0.01 K/uL (0-0.2); Basophils % (auto) 0.2 %; Eosinophils # (auto) 0.01 K/uL (0-0.50); Eosinophils % (auto) 0.2 %; Hematocrit (blood only) 42.8 % (42.0-52.0); Hemoglobin 15.9 g/dl (14.0-18.0); Immature Granulocytes # (auto) 0.01 K/uL (0.01-0.20); Immature Granulocytes % (auto) 0.2 %; Mean Corpuscular Hemoglobin 30.9 pg (25.0-34.0); Mean Corpuscular Hgb Conc 37.1 g/dL (32.0-36.0); Mean Corpuscular Volume 83.1 fL (80.0-100.0); Mean Platelet Volume 9.8 fL (9.4-12.4); Monocytes # (auto) 0.75 K/uL (0.11-0.59); Neutrophils # (auto) 3.21 K/uL (1.40-6.50); Neutrophils % (auto) 64.4 %; Platelet Count 225 K/uL (130-400); RDW Coefficient of Variation 12.1 % (11.5-14.5); RDW Standard Deviation 36.8 fL (36.4-46.3); Red Blood Count 5.15 M/uL (4.70-6.10); White Blood Count 4.99 K/ul (4.8-10.8)
[2022-10-21 04:09] LABS: Albumin Level 4.3 gm/dl (3.4-5.0); BUN Creatinine Ratio 15.9 (10-20); Calcium 8.9 mg/dl (8.6-10.3); Creatinine Clr Calc Pharmacy 126.3 ml/min; Est GFR (African American) 106.1 ml/min; Est GFR (Non-African American) 91.5 ml/min; Phosphorus 2.4 mg/dl (2.5-4.9); Potassium 3.7 mmol/L (3.5-5.1)
[2022-10-21 06:28] LABS: Estimated Average Glucose 203 mg/dl; Hemoglobin A1C 8.7 % (4.5-5.6)
[2022-10-21] MEDS: INSULIN ASPART PER UNIT CHARGE SC SCH ×5 (07:42→21:09)
--- NOTE | 2022-10-21 07:45 | XRay Report ---
XR chest 1V not portable CLINICAL HISTORY: Cough, lethargy TECHNIQUE: Single frontal radiograph of the chest was obtained. Comparison: Comparison is made to chest radiograph 07/15/2022 FINDINGS: No lines and tubes are seen. The cardiomediastinal silhouette is normal. The lungs are clear. No evid ence of pleural effusion or pneumothorax. IMPRESSION: No acute abnormalities and in particular no radiographic evidence of pneumonia. ACT 112: Negative or not required by law. Electronically signed by: Ralph Victoria M.D. 10/21/2022 7:44 AM
[2022-10-21] MEDS: CHOLECALCIFEROL 1,000 UNITS 25 MCG TAB PO SCH (09:09)
[2022-10-21] MEDS: CITALOPRAM 20 MG TAB PO SCH (09:09)
[2022-10-21] MEDS: VALSARTAN 80 MG TAB PO SCH ×2 (09:09→20:11)
[2022-10-21] MEDS: SODIUM CHLORIDE 1 GM TABLET PO SCH (09:31)
[2022-10-21] MEDS: POT PHOSPHATE MONOBASIC W/ SOD TAB PO SCH ×2 (09:31→13:42)
[2022-10-21] MEDS: ASPIRIN 81 MG ECTAB PO SCH (09:32)
[2022-10-21] MEDS: CYCLOBENZAPRINE HCL 5 MG TAB PO PRN ×2 (09:40→20:10)
[2022-10-21 09:52] LABS: Calcium 8.9 mg/dl (8.6-10.3); Potassium 3.6 mmol/L (3.5-5.1)
[2022-10-21 09:57] LABS: BUN Creatinine Ratio 15.7 (10-20); Creatinine Clr Calc Pharmacy 116.4 ml/min; Est GFR (African American) 102.5 ml/min; Est GFR (Non-African American) 88.5 ml/min
[2022-10-21] MEDS: HYDROCODONE/ACETAMOPHEN 5/325MG TAB PO PRN ×2 (11:48→21:13)
[2022-10-21 13:01] LABS: Adenovirus PCR Not Detected (NotDetected); Bordetella parapertussis PCR Not Detected (NotDetected); Bordetella pertussis PCR Not Detected (NotDetected); Chlamydia pneumoniae PCR Not Detected (NotDetected); Coronavirus 229E PCR Not Detected (NotDetected); Coronavirus CoV-2 (COVID19)PCR Not Detected (NotDetected); Coronavirus HKU1 PCR Not Detected (NotDetected); Coronavirus NL63 PCR Not Detected (NotDetected); Coronavirus OC43PCR Not Detected (NotDetected); Human Metapneumovirus PCR Not Detected (NotDetected); Influenza A PCR Not Detected (NotDetected); Influenza B PCR Not Detected (NotDetected); Mycoplasma pneumoniae PCR Not Detected (NotDetected); Parainfluenza Virus 1 PCR Not Detected (NotDetected); Parainfluenza Virus 2 PCR Not Detected (NotDetected); Parainfluenza Virus 3 PCR Not Detected (NotDetected); Respiratory Syncytial VirusPCR Not Detected (NotDetected); Rhinovirus/Enterovirus PCR Not Detected (NotDetected)
[2022-10-21 13:06] LABS: Parainfluenza Virus 4 PCR DETECTED (NotDetected)
--- NOTE | 2022-10-21 13:20 | XCELERA ---
[id number] \\[id number]
--- NOTE | 2022-10-21 15:42 | Electrocardiogram Report ---
Test Reason : Blood Pressure : / mmHG Vent. Rate : 079 BPM Atrial Rate : 079 BPM P-R Int : 164 ms QRS Dur : 090 ms QT Int : 358 ms P-R-T Axes : 105 -47 119 degrees QTc Int : 410 ms Sinus rhythm with Premature atrial complexes Left anterior fascicular block Left ventricular hypertrophy with repolarization abnormality ( R in aVL ) Abnormal ECG When compared with ECG of 23-SEP-2018 23:28, Premature atrial complexes are now Present T wave inversion no longer evident in Anterior leads Confirmed by Dain Leone ([id number]) on 10/21/2022 3:42:01 PM Referred By: REFERRED SELF Confirmed By:Dain Leone
--- NOTE | 2022-10-21 20:01 | Hospitalist Progress Note ---
Date of Service October 21, 2022 Assessment & Plan (1) SIADH (syndrome of inappropriate ADH production): Plan: Acute hyponatremia/SIADH- Sodium 126, serum osmolality 273, urine osmolality 640, Ur Na 49, consistent with SIADH perhaps from parainfluenza infection and back pain ALthough may be some component also of hypovolemia and/or poor solute intake contributing as he has not eaten in 3 days Most of his symptoms could be explained by this process Fluid restrict to 1200 mL Follow serial renal function panels-Na+ up to 129 when corrected for hyperglycemia on recheck this AM -add NaCl 1 gram po daily repeat BMP bid appetite is improved and taking salt in diet-remove heart healthy diet (2) Parainfluenza infection: Plan: Multiple complaints of myalgias, feeling rundown, lethargic, generalized weakness- Patient did have negative Lyme disease, and anaplasmosis and babesiosis smears with pending antibody titers Checked respiratory BioFire and positive for parainfluenza virus 4 SUpportive care hydrocodone added for lower [place] pain-helpful no PNA clinically but no CXR done here-not necessary at this point as not hypoxic, no cough or respiratory symptoms check CK with next labs given back pain in case of infectious myositis (3) Generalized weakness: Plan: as baove, improving with improvement in sodium (4) Diabetes type 2, controlled: Plan: glucose uncontrolled add home long acting insulin but slightly reduced given poorer po intake--> Lantus 15 units hs and tighten down Novolog scale (5) Hypertension: Plan: Elevated troponin/hypertension-demand ischemia from acute illness trop trended and was 24///29-stable Continue amlodipine, aspirin, valsartan (6) Elevated troponin I level: Plan: as above (7) Dyslipidemia: Plan: continue statin (8) Chronic renal disease, stage 3, moderately decreased glomerular filtration rate (GFR) between 30-59 mL/min/1.73 square meter: Plan: -Avoid nephrotoxins -renally dose meds when appropriate -follow BMP Plan DVT proph-add Lovenox Dispo-continued stay on tele, discussed care with and daughter at bedside Admission and Anticipated Discharge Date Admission Date: October 21, 2022 Subjective Pt had fairly severe lower back pain with spasms this AM.It was relieved with hydrocodone but not with flexeril prior to that. Had occasional headaches, no fevers, no sore throat or cough or sinus congestion but he did have those symptoms 2 weeks ago when he was seen at urgent care. Those symptoms were all relieved with taking Augmentin and tesslaon perles. He is feeling better with his appetite and ate his first meal this AM in 3 days. Tele with NSR, PACs, rates 60-70s Physical Exam Constitutional: WD/WN, vitals as above Eyes: PERRL, conjunctivae normal, anicteric sclerae ENMT: external ear and nose normal, oropharynx normal Neck: trachea midline, no thyromegaly Respiratory: normal respiratory effort, lungs clear to auscultation Cardiovascular: RRR, no murmur, no edema Chest (Breasts): Chest: normal inspection of chest Gastrointestinal (Abdomen): normal bowel sounds, soft, nontender, no hepatosplenomegaly Musculoskeletal: Extremities: extremities normal to inspection; no cyanosis and no clubbing Skin: no rashes, warm and dry Neurologic: moves all extremities and awake; no focal motor deficits Psychiatric: A+Ox3, euthymic affect Lymphatic: no lymphedema Results & Data Results & Data Vital Signs (Past 12 Hours) Vital Signs Temp Pulse Pulse Resp BP Pulse Ox O2 Del Method 10/21/22 15:15 37.0 C 77 18 139/64 96 Room Air 10/21/22 16:07 64 10/21/22 11:30 36.8 C 87 18 146/61 H Room Air 10/21/22 08:32 36.8 C 74 16 137/68 98 Room Air 10/21/22 08:27 69 Laboratory Results BMP, HgbA1C, CBC, troponin reviewed PG Care Time/CCT Total # of Minutes Spent Total Time Spent with Patient: Total time spent is greater than 50% in coordination of care (as documented) at patient's floor/unit and/or counseling patient: Coding Level of Care Code None Diagnoses SIADH (syndrome of inappropriate ADH production) E22.2 Parainfluenza infection B34.8 Generalized weakness R53.1 Diabetes type 2, controlled E11.9 Hypertension I10 Elevated troponin I level R77.8 Dyslipidemia E78.5 Chronic renal disease, stage 3, moderately decreased glomerular filtration rate (GFR) between 30-59 mL/min/1.73 square meter N18.3
[2022-10-21] MEDS ORDERED: ATORVASTATIN 40 MG TAB PO SCH (21:00)
[2022-10-21] MEDS ORDERED: LANTUS PER UNIT CHARGE SQ SCH (21:00)
[2022-10-21] MEDS ORDERED: ENOXAPARIN INJ 40 MG/0.4 ML SYR SQ SCH (21:00)
[2022-10-21] MEDS ORDERED: amLODIPine BESYLATE 5 MG TAB PO SCH (21:00)
[2022-10-21 21:03] LABS: BUN Creatinine Ratio 17.3 (10-20); Calcium 8.8 mg/dl (8.6-10.3); Creatinine Clr Calc Pharmacy 99.6 ml/min; Est GFR (African American) 85.7 ml/min; Est GFR (Non-African American) 73.9 ml/min; Potassium 3.4 mmol/L (3.5-5.1)
[2022-10-21] MEDS ORDERED: POTASSIUM CHLORIDE CRTAB 20 MEQ TABCR PO STA (21:30)
[2022-10-22 06:48] LABS: Eosinophils # (auto) 0.01 K/uL (0-0.50); Eosinophils % (auto) 0.3 %; Hemoglobin 15.6 g/dl (14.0-18.0); Immature Granulocytes # (auto) 0.02 K/uL (0.01-0.20); Immature Granulocytes % (auto) 0.5 %; Lymphocytes # (auto) 0.98 K/uL (1.2-3.4); Lymphocytes % (auto) 24.6 %; Mean Corpuscular Hemoglobin 30.8 pg (25.0-34.0); Mean Corpuscular Hgb Conc 37.1 g/dL (32.0-36.0); Mean Corpuscular Volume 82.8 fL (80.0-100.0); Mean Platelet Volume 9.9 fL (9.4-12.4); Monocytes # (auto) 0.79 K/uL (0.11-0.59); Monocytes % (auto) 19.8 %; Neutrophils # (auto) 2.18 K/uL (1.40-6.50); Neutrophils % (auto) 54.8 %; Platelet Count 219 K/uL (130-400); RDW Coefficient of Variation 12.2 % (11.5-14.5); RDW Standard Deviation 36.9 fL (36.4-46.3); Red Blood Count 5.07 M/uL (4.70-6.10); White Blood Count 3.98 K/ul (4.8-10.8)
[2022-10-22 07:34] LABS: Albumin Level 4.2 gm/dl (3.4-5.0); BUN Creatinine Ratio 15.8 (10-20); Calcium 9.2 mg/dl (8.6-10.3); Creatinine Clr Calc Pharmacy 107.8 ml/min; Est GFR (African American) 95.6 ml/min; Est GFR (Non-African American) 82.5 ml/min; Magnesium 2.1 mg/dl (1.7-2.4); Phosphorus 2.7 mg/dl (2.5-4.9); Potassium 3.8 mmol/L (3.5-5.1)
[2022-10-22] MEDS: SODIUM CHLORIDE 1 GM TABLET PO SCH (08:44)
[2022-10-22] MEDS: VALSARTAN 80 MG TAB PO SCH (08:44)
[2022-10-22] MEDS: CITALOPRAM 20 MG TAB PO SCH (08:45)
[2022-10-22] MEDS: ASPIRIN 81 MG ECTAB PO SCH (08:45)
[2022-10-22] MEDS: CHOLECALCIFEROL 1,000 UNITS 25 MCG TAB PO SCH (08:46)
[2022-10-22] MEDS: INSULIN ASPART PER UNIT CHARGE SC SCH ×2 (08:50→12:12)
--- NOTE | 2022-10-22 12:00 | Discharge Summary ---
Discharge Summary Date of Service October 22, 2022 Notes For Next Care Provider Check BMP in 1 week with PCP Medication Changes From Visit NaCl 1000mg po daily x 7 days Hydrocodone 5/325mg po q4h prn pain Admission HPI Per Admitting Provider The patient is a 67-year-old male with a past medical history including diabetic peripheral neuropathy, diabetes mellitus, diabetic foot ulcer, hypertension, dyslipidemia, diabetic nephropathy, anxiety disorder, CKD stage III, BPH, recurrent UTI and partial foot amputation. He reports upper respiratory infection the previous week, that seemed to have gotten better with antibiotics, however, since that time he has had generalized symptoms of muscle aches, feeling rundown, lethargy and generalized weakness and fatigue. He also describes a feeling somewhat disoriented intermittently. Significant laboratories: Sodium 126, glucose 189, troponin 25.9, serum osmolality 273 and urine osmolality 640. The patient did, while he was in the ED, reported his low back was bothering him, however, he thought it was related to the ED bed, and asked for a muscle relaxer, for which he was given baclofen Principal Dx & Hospital Course #1 = Principal Diagnosis (1) SIADH (syndrome of inappropriate ADH production): Acute hyponatremia/SIADH- Sodium 126, serum osmolality 273, urine osmolality 640, Ur Na 49, consistent with SIADH perhaps from parainfluenza infection and back pain Although may be some component also of hypovolemia and/or poor solute intake contributing as he has not eaten in 3 days Most of his symptoms could be explained by this process Fluid restricted to 1200 mL Followed serial renal function panels-Na+ up to 130 when corrected for hyperglycemia on the day of discharge -continue NaCl 1 gram po daily x 7 more days -appetite is improved and taking salt in diet -check BMP in 1 week as outpt (2) Parainfluenza infection: Multiple complaints of myalgias, feeling rundown, lethargic, generalized weakness- Patient did have negative Lyme disease, and anaplasmosis and babesiosis smears with pending DNA PCR at time of discharge but doubt has tick borne infection Checked respiratory [employer] and positive for parainfluenza virus 4 continue supportive care hydrocodone added for lower [place] pain-helpful no PNA clinically but no CXR done here-not necessary at this point as not hypoxic, no cough or respiratory symptoms CK checked given back pain in case of infectious myositis but was normal at 50 Clinically much improved (3) Generalized weakness: as above, now much improved with improvement in sodium ambulating independently (4) Diabetes type 2, controlled: glucose uncontrolled and elevated due to acute infection but improved from previous continue home doses of insulin on discharge and restart home metformin, Januvia (5) Hypertension: Elevated troponin/hypertension-demand ischemia from acute illness trop trended and was /-stable ECHO normal EF, mod LVH, no wall motion abnormalities Continue amlodipine, aspirin, valsartan (6) Elevated troponin I level: as above (7) Dyslipidemia: continue statin (8) Chronic renal disease, stage 3, moderately decreased glomerular filtration rate (GFR) between 30-59 mL/min/1.73 square meter: -Avoid nephrotoxins -renally dose meds when appropriate -follow BMP in 1 week as outpt Plan DVT proph- Lovenox Dispo-dc to home discussed care with at bedside Discharge Exam Constitutional WD/WN, vitals as above Neck trachea midline, no thyromegaly Respiratory normal respiratory effort, lungs clear to auscultation Cardiovascular RRR, no murmur, no edema Chest (Breasts) Chest: normal inspection of chest Gastrointestinal (Abdomen) normal bowel sounds, soft, nontender, no hepatosplenomegaly Musculoskeletal Extremities: extremities normal to inspection; no cyanosis and no clubbing Skin no rashes, warm and dry Neurologic moves all extremities and awake; no focal motor deficits Psychiatric A+Ox3, euthymic affect Lymphatic no lymphedema Updated Medication List Medication Instructions Recorded Confirmed Type blood sugar diagnostic (FreeStyle #90 ea 03/28/19 08/12/22 Rx Precision Rashad Strips) Dexcom G6 Rda (blood-glucose #1 ea 03/30/19 08/12/22 Rx meter,continuous) BD Ultra-Fine Mary Jane Pen Needle 32 #300 ea 04/27/22 08/12/22 Rx gauge x 5/32" (pen needle, diabetic) Dexcom G6 Transmitter #1 ea 04/27/22 08/12/22 Rx (blood-glucose transmitter) metformin 1,000 mg tablet 1,000 mg PO BID #180 tabs 04/27/22 10/21/22 Rx Dexcom G6 Sensor (blood-glucose #3 ea 05/25/22 08/12/22 Rx sensor) aspirin 81 mg tablet,delayed 81 mg PO QAM 07/12/22 10/21/22 History release (Charles Low Dose Aspirin) atorvastatin 80 mg tablet 80 mg PO HS 07/12/22 10/21/22 History cholecalciferol (vitamin D3) 50 50 mcg PO QAM 07/12/22 10/21/22 History mcg (2,000 unit) tablet insulin degludec 100 unit/mL (3 20 unit subcut QAM 07/12/22 10/21/22 History mL) subcutaneous pen (Tresiba FlexTouch U-100 insulin) sitagliptin phosphate 100 mg 100 mg PO QAM 07/12/22 10/21/22 History tablet (Januvia) amlodipine 10 mg tablet 10 mg PO HS #90 tabs 08/12/22 10/21/22 Rx citalopram 10 mg tablet (Celexa) 10 mg PO QAM #90 tabs 08/12/22 10/21/22 Rx valsartan 160 mg tablet (Diovan) 160 mg PO BID #90 tabs 08/12/22 10/21/22 Rx insulin aspart U-100 100 unit/mL 0 sliding scale dose subcut BIDM 10/21/22 10/21/22 History (3 mL) subcutaneous pen (Novolog FlexPen U-100 Insulin aspart) hydrocodone 5 mg-acetaminophen 325 1 tab PO Q4H PRN lower back pain 10/22/22 Rx mg tablet #10 tabs sodium chloride 1,000 mg soluble 1 g PO QAM #7 tabs 10/22/22 Rx tablet Hospital Stay Data Consultations 10/20/22 23:15 ED Decision to Admit Stat Diagnostic Imagining Performed 10/20/22 20:24 CT head/brain wo con Stat ECHO CXR Pending Results Patient Have Any Pending Studies at Discharge: Yes (Anaplasmosis,Babesiosis DNA PCR) Discharge Instructions Given to Patient (Per Discharging Provider) Please continue taking the salt tablets once daily x 1 week and have your PCP repeat your blood work to check your sodium level in 1 week. Total Time Total Time Spent Total Time Spent (In Minutes): 35 min Coding Level of Care Code 58510 INP/OBS DISCH >30 MIN Diagnoses SIADH (syndrome of inappropriate ADH production) E22.2 Parainfluenza infection B34.8 Generalized weakness R53.1 Diabetes type 2, controlled E11.9 Hypertension I10 Elevated troponin I level R77.8 Dyslipidemia E78.5 Chronic renal disease, stage 3, moderately decreased glomerular filtration rate (GFR) between 30-59 mL/min/1.73 square meter N18.3
[2022-10-22 13:27] LABS: Albumin Globulin Ratio 1.3 (0.9-2); Albumin Level 3.9 gm/dl (3.4-5.0); BUN Creatinine Ratio 17.1 (10-20); Bilirubin,Total 1.1 mg/dl (0.2-1.0); Calcium 8.8 mg/dl (8.6-10.3); Creatinine Clr Calc Pharmacy 92.3 ml/min; Est GFR (African American) 79.2 ml/min; Est GFR (Non-African American) 68.3 ml/min; Potassium 3.5 mmol/L (3.5-5.1); Total Protein 6.9 gm/dl (6.0-8.3)
[2022-10-24 23:53] LABS: Babesia microti DNA Not Detected (Not Detected)
== END 2022-10-22 14:39 | disposition home or self-care (01) | DRG 644 ==
LOC: ED 18:53 → 2E 10-21 00:20 → SUATTDRO 10-21 00:20 → 2E 10-21 03:06